=== PATIENT | male | born 1970 | race Caucasian/White ===

== ENCOUNTER 2019-03-16 20:35 | Emergency (ER) | payer BC ==
[2019-03-16 21:19] VITALS: BP 128/77
--- NOTE | 2019-03-16 21:32 | UC ---
Eye Complaint HPI - HPI Summary HPI Summary: 48 yo male noted acute decrease in right eye visual accuity later developed right retrobulbar pressure now left visual accuity seems to worsening no SARMIENTO No URI no photophobia no d/c - History of Current Complaint Chief Complaint: UCEye Stated Complaint: RIGHT EYE COMPLAINT Time Seen by Provider: 03/16/19 21:20 Hx Obtained From: Patient Onset/Duration: Sudden Onset, Lasting Hours Timing: Constant Severity Initially: Moderate Severity Currently: Moderate Pain Intensity: 0 Pain Scale Used: 0-10 Numeric Associated Signs And Symptoms: Positive: Vision Impairment Right - >>L - Risk Factors Penetrating Injury Risk Factor: Negative Globe Rupture Risk Factors: Negative Acute Glaucoma Risk Factors: Negative Optic Artery Occlusion Risk Factors: Negative - Allergies/Home Medications Allergies/Adverse Reactions: Allergies Allergy/AdvReac Type Severity Reaction Status Date / Time amoxicillin AdvReac GI Upset Verified 03/16/19 21:13 Penicillins AdvReac GI Upset Verified 03/16/19 21:13 Home Medications: Home Medications Acetaminophen [Tylenol Extra Strength] 1,000 mg PO Q6H PRN 03/16/19 [History Confirmed 03/16/19] PMH/Surg Hx/FS Hx/Imm Hx Previously Healthy: Yes - Surgical History Surgical History: None - Family History Known Family History: Negative: Cardiac Disease, Hypertension, Diabetes - Social History Alcohol Use: Weekly Substance Use Type: None Smoking Status (MU): Former Smoker When Did the Patient Quit Smoking/Using Tobacco: 2008 Review of Systems All Other Systems Reviewed And Are Negative: Yes Constitutional: Positive: Negative Skin: Positive: Negative Eyes: Positive: Blurred Vision - R>L ENT: Positive: Negative Respiratory: Positive: Negative Cardiovascular: Positive: Negative Gastrointestinal: Positive: Negative Genitourinary: Positive: Negative Motor: Positive: Negative Neurovascular: Positive: Negative Musculoskeletal: Positive: Negative Neurological: Positive: Negative Psychological: Positive: Negative Physical Exam Triage Information Reviewed: Yes Appearance: Well-Appearing, No Pain Distress, Well-Nourished Vital Signs: Initial Vital Signs Temp 97.9 F 03/16/19 21:14 Pulse 57 03/16/19 21:14 Resp 20 03/16/19 21:14 BP 128/77 03/16/19 21:14 Pulse Ox 100 03/16/19 21:14 Vital Signs Reviewed: Yes Eyes: Positive: Conjunctiva Clear, Other: - EOMI/PERRL, fundal exam difficult, right eye does not feel firmer than left, no proptosis, no visual field defect ENT: Positive: Hearing grossly normal. Negative: Nasal congestion, Nasal drainage, Trismus, Muffled voice, Hoarse voice Neck: Positive: Supple, Nontender, No Lymphadenopathy Respiratory: Positive: Lungs clear, Normal breath sounds, No respiratory distress, No accessory muscle use Cardiovascular: Positive: RRR, No Murmur Musculoskeletal: Positive: ROM Intact, No Edema Neurological: Positive: Alert Psychological Exam: Normal Skin Exam: Normal Diagnostics - Laboratory Lab Results: blood sugar: Eye Complaint Course/Dx - Course Course Of Treatment: discussed with [facility] - Differential Dx/Diagnosis Provider Diagnosis: Visual changes, Retro-orbital pain of right eye Discharge - Sign-Out/Discharge Documenting (check all that apply): Patient Departure All imaging exams completed and their final reports reviewed: No Studies - Discharge Plan Condition: Stable Disposition: HOME-RECOMMEND TO ED Referrals: MADISON Ruffin [Primary Care Provider] - Additional Instructions: I suggest you go to [facility] for evaluation of your visual changes I have spoken to the transfer center - Billing Disposition and Condition Condition: STABLE Disposition: Home-Recommend to ED
== END 2019-03-16 21:52 | disposition home health service (06) ==
LOC: UCCORT 20:35
DX: H57.11 Ocular pain, right eye (principal); H53.9 Unspecified visual disturbance; Z88.0 Allergy status to penicillin; Z87.891 Personal history of nicotine dependence
CPT/HCPCS: 99202; G0463